=== PATIENT | female | born 1935 | race Caucasian/White ===

== ENCOUNTER 2025-03-02 09:52 | Outpatient (RCR) | payer OTHER, SELFPAY | END 2025-03-05 23:59 | disposition home or self-care (01) | LOC: GPT 09:52 | PROVIDERS: Visit Provider Nurse Practitioner | DX: R26.81 Unsteadiness on feet (principal); M62.81 Muscle weakness (generalized); R26.2 Difficulty in walking, not elsewhere classified | CPT/HCPCS: 97110; 97112; 97161 ==

== ENCOUNTER 2025-03-22 08:56 | Outpatient (RCR) | payer OTHER, SELFPAY | END 2025-04-04 23:59 | disposition home or self-care (01) | LOC: GPT 08:56 | PROVIDERS: Visit Provider Nurse Practitioner | DX: R26.81 Unsteadiness on feet (principal); M62.81 Muscle weakness (generalized); R26.2 Difficulty in walking, not elsewhere classified | CPT/HCPCS: 97110; 97112; 97530 ==